=== PATIENT | female | born 1985 | race Caucasian/White ===

== ENCOUNTER 2024-06-05 16:51 | Emergency (ER) | payer MEDICARE, SELFPAY ==
[2024-06-05 16:58] VITALS: BP 153/100
--- NOTE | 2024-06-05 17:20 | ED.GENMED ---
History of Present Illness
General
Chief Complaint: Anxiety
Time Seen by Provider: 06/05/24 17:18
History of Present Illness
History of Present Illness:
HPI: Patient comes in due to concerns for anxiety. Moved in w/ father/step-mother 7M ago. Was alone last week while parents away. 2d ago, had pressured speech, restless, more talkative, reported 'anxiety' to mother. Then became noncommunicative
to therapist and PMD. She is here w/ step-mother. Was crying extensively last night, but no SI thoughts. One week ago, started gabapentin (no steroids). Also on Latuda, Lamictal, and Vistaril. Father states that she had a similar episode in the
past which was successfully treated just with Ativan. It is unclear and he will not answer me directly if she is or is not taking Ativan currently.
EXAM:
GENERAL: The patient only intermittently answers questions and speaks in very low volume
HEENT: Moist oral mucosa, there are no intraoral lesions suggestive of SJS
CARDIOVASCULAR: No murmurs, tachycardic heart rate, regular rhythm, No chest wall tenderness
PULMONARY: No respiratory distress, breath sounds are clear and equal
ABDOMEN: Soft with no peritoneal signs, no tenderness
NEUROLOGIC: Fair strength in all extremities, no definite focal deficits on examination, minimally verbal
PSYCHIATRIC: The patient appears somewhat withdrawn, she appears anxious
EXTREMITIES: Nontender, no edema, moves all extremities equally
SKIN: There is a faint erythematous rash over the anterior chest wall
TIME OF INITIAL ENCOUNTER: 5:20 PM
NUMBER AND COMPLEXITY OF PROBLEMS ADDRESSED AT THE ENCOUNTER
� Chronic conditions affecting care: Bipolar disorder
� Acute Exacerbation and/or Progression of Chronic Illness: This is an acute problem but had similar presentation in the past
� Differential Diagnosis includes: Severe anxiety, worsening bipolar disorder, manic state, drug reaction
AMOUNT AND/OR COMPLEXITY OF DATA TO BE REVIEWED AND ANALYZED
� I performed an independent evaluation of and my interpretation is:
EKG:
CT:
X-rays:
Laboratory Studies:
Other:
� Review of other/old records: The patient was seen here in the emergency department 2017 related to anxiety. In 2019 she was also seen by crisis and placed at a psychiatric facility.
� Clinical information was obtained by an independent historian: Father and stepmother at bedside
� Prescriptions/Medications Considered but not given:
� Further testing considered but not performed: No clear indication for lab work at this time
RISK OF COMPLICATIONS AND/OR MORBIDITY OR MORTALITY OF PATIENT MANAGEMENT
� Social determinants of health affecting care:
� Discussion with other providers:
� Escalation of care including admission/observation vs risk of discharge considered: The patient's symptoms seem to have worsened after she started gabapentin recently. Although she is on Lamictal, I see no clear evidence of
SJS. Will try dose of Ativan as father states that this helped her in the past when she had a similar episode. We did give a dose of Ativan orally. On reassessment at 7:40 PM, she is speaking a little bit more on reassessment. I did speak to the
father about possibly having her go to a psychiatric facility. She has had a similar episode in the past which resolved after Ativan was given' the next day she was better'. Since she has no SI and there are no concerns for harming herself I feel
she can be safely discharged. Her heart rate is elevated but slightly better compared to arrival.
Past History
Past History
ED Past Medical History: Asthma, GERD and Psychiatric (Anxiety)
ED Past Surgical History: Other ([place] teeth)
Social History
Tobacco: Non-smoker
Personal:
Living: with family
Employment: Employed
Family History
Family History: Other (Noncontributory)
Phy Exam
Physical Exam
Physical Exam:
See HPI
Course
Orders/Labs/Results
Orders:
Orders
06/05/24 18:12
Lorazepam [Ativan] 1 mg PO NOW STA
Vital Signs
Initial and Last Documented VS:
Initial Vital Signs
Temp Pulse BP Pulse Ox
97.5 F 127 153/100 98
06/05/24 16:58 06/05/24 16:58 06/05/24 16:58 06/05/24 16:58
Last Documented Vital Signs
Temp Pulse Resp BP Pulse Ox
97.5 F 122 18 146/95 100
06/05/24 16:58 06/05/24 18:00 06/05/24 18:00 06/05/24 18:00 06/05/24 18:00
*Critical Care Note
Total Time (30-74mins, 75-104mins- exclusive of procedures): Not Applicable
ED Attending Note
-
Portions of this chart may have been created with voice recognition software.� Occasional wrong word or��sound alike� substitutions may have occurred due to the inherent limitations of voice recognition software.
Discharge Plan
Departure
Prescriptions:
No Action
Unobtainable
0
Referrals:
Alfredo Estevez MD [Family Provider] -
Interventions
Interventions:
*Risk Screen - Suicide Last Done: 06/05/24 16:54
*General Assessment Last Done: 06/05/24 17:01
ED- Fall Risk Assessment Last Done: 06/05/24 17:41
*ED COVID-19 Vaccine History Last Done: 06/05/24 17:01
ED-Psychological Assessment Last Done: 06/05/24 17:41
Discharge Date and Time
Print Language: ANDORRAN
[2024-06-05 17:41] VITALS: BMI 32.6
[2024-06-05 17:48] VITALS: BP 146/95
--- NOTE | 2024-06-05 17:57 | EDRN ---
Received patient on stretcher. Patient is non verbal. Patient stares at you when asked any questions. Patient points to her chest and abdomen when asked where her rash is. Parents stated that the patient was started on Gabapentin 2 weeks ago and was
told by her doctor to stop taking it.
[2024-06-05 18:00] VITALS: BP 146/95
[2024-06-05] MEDS: ATIVAN 1 MG PO (18:37)
[2024-06-05 20:02] VITALS: BP 132/82
== END 2024-06-05 20:05 | disposition home or self-care (01) ==
LOC: EMR 16:51
PROVIDERS: EMERGENCY PHYSICIAN Emergency Medicine; FAMILY PHYSICIAN Internal Medicine
DX: F41.9 Anxiety disorder, unspecified (principal); J45.909 Unspecified asthma, uncomplicated; K21.9 Gastro-esophageal reflux disease without esophagitis
CPT/HCPCS: 99282

== ENCOUNTER 2024-06-08 04:06 | Emergency (ER) | payer MEDICARE, SELFPAY ==
[2024-06-08] VITALS (8 sets, daily range): BP systolic 128–155; BP diastolic 78–103
--- NOTE | 2024-06-08 04:38 | ED.GENMED ---
History of Present Illness
General
Chief Complaint: Change in Mental Status
Time Seen by Provider: 06/08/24 04:12
History of Present Illness
History of Present Illness:
38-year-old female who presents to the emergency department with her father. He states that for the last day she has been making repetitive sounds. Patient told him she was starting to 'dissociate'. She has a history of bipolar disorder and
anxiety. Patient had a similar episode approximate 1 year ago. She went into a psychiatric hospital and came out feeling much better. Dad states that about that time, her left her so she came to live with him and her stepmother. Dad
states that she has minimal contact with her biological mom who lives in [place]. Dad and stepmom went away several weeks ago on vacation. They did have a family friend stay with her during their absence. Patient did tell dad that during the
absence, she began to decompensate. Dad states that she had been very high functioning prior to this, even helping him build a deck. For the last 2 days, patient has been having altered mental status. Making strange sounds and not communicating.
Dad states that the most he had heard her talk in the previous 2 days was when she was talking to me. She denies any symptoms at this time, but her history is limited. Patient did admit that she wanted to go to an inpatient psychiatric facility.
Patient was seen by crisis who corroborated the story. They are looking for placement
Past History
Past History
ED Past Medical History: Asthma, GERD and Psychiatric (Anxiety)
ED Past Surgical History: Other ([place] teeth)
Social History
Tobacco: Non-smoker
Personal:
Living: with family
Employment: Employed
Family History
Family History: Other (Noncontributory)
Phy Exam
Physical Exam
Physical Exam:
Physical Exam
Vital signs and allergy list reviewed and agreed with.
GENERAL: Alert, tracking with eyes, in moderate apparent distress
EYE: pupils equal, EOMI, anicteric
NECK: Supple, no significant adenopathy. No masses. Trachea midline
ENT: Oropharynx is clear, mmm.
CARDIAC: Regular rate and rhythm . No M/R/G
LUNGS: Clear breath sounds bilaterally, no acute respiratory distress, no wheezes/rales/rhonchi
ABDOMEN: Unable to evaluate
NEUROLOGICAL: Blank stare with occasional answering of questions. When she did answer questions, her answers were appropriate.
SKIN: Warm and dry, skin intact.
MUSCULOSKELETAL: No edema, well perfused. Moves all 4 extremities
PSYCH: Flat affect with minimal interaction
Course
Orders/Labs/Results
Orders:
Orders
06/08/24 04:36
Bedside Glucose- Treatment ONCE
Urine Drug Abuse Screen Urgent
Lorazepam [Ativan] 1 mg PO NOW STA
Test Result ONCE
06/08/24 04:41
Crisis Consult Urgent
Reason for Consult: ams- hx of bipolar
06/08/24 05:46
Acetaminophen Urgent
Alcohol Urgent
Complete Blood Count/With Diff Urgent
Comprehensive Metabolic Panel Urgent
HCG, Serum Qualitative Screen Urgent
Salicylate Urgent
Abnormal Lab Results
06/08/24 06/08/24
05:46 05:48
WBC 18.3 H 10^3/uL
(4.8-10.8)
Hct 35.8 L %
(37.0-47.0)
Plt Count 636 H 10^3/uL
(130-400)
Abs Immat Gran (auto) 0.2 H 10^3/uL
(0-0.05)
Absolute Neuts (auto) 15.1 H 10^3/uL
(1.4-6.5)
Absolute Monos (auto) 1.0 H 10^3/uL
(0.1-0.6)
Immature Gran % 0.9 H %
(0-0.5)
Neutrophils % 82.4 H %
(42.2-75.2)
Lymphocytes % 10.8 L %
(20.5-51.1)
Glucose 114 H mg/dl
(70-99)
ALT 67 H U/L
(0-35)
Salicylates < 1.0 L mg/dl
(2.0-20.0)
Acetaminophen < 10 L ug/ml
(10-30)
POC Glucose 112 H mg/dl
(70-99)
06/08/24 05:46
06/08/24 05:46
Vital Signs
Initial and Last Documented VS:
Initial Vital Signs
Temp Pulse Resp BP Pulse Ox
97.6 F 125 24 141/95 99
06/08/24 04:10 06/08/24 04:10 06/08/24 04:10 06/08/24 04:10 06/08/24 04:10
Last Documented Vital Signs
Temp Pulse Resp BP Pulse Ox
97.6 F 115 30 131/91 95
06/08/24 04:10 06/08/24 06:00 06/08/24 06:00 06/08/24 06:00 06/08/24 06:00
*Critical Care Note
Total Time (30-74mins, 75-104mins- exclusive of procedures): Not Applicable
ED Attending Note
-
Portions of this chart may have been created with voice recognition software.� Occasional wrong word or��sound alike� substitutions may have occurred due to the inherent limitations of voice recognition software.
Discharge Plan
Departure
Patient Disposition: Psych Facility
Date of Disposition: 06/08/24
Time of Disposition: 07:01
Patient with high blood pressure during this ER visit?: No
Condition: Good
Discharge Problem:
Disassociation, Altered mental status
Instructions: Altered Mental Status (DC)
Prescriptions:
No Action
Unobtainable
0
Referrals:
UNKNOWN - PT DOES,NOT KNOW [Family Provider] -
Interventions
Interventions:
*Risk Screen - Suicide Last Done: 06/08/24 05:25
*General Assessment Last Done: 06/08/24 05:25
*Neglect/Abuse Screening Last Done: 06/08/24 05:25
*ED COVID-19 Vaccine History Last Done: 06/08/24 05:25
ED-Psychological Assessment Last Done: 06/08/24 05:25
ED- Neurological Assessment Last Done: 06/08/24 05:25
ED Swallowing Screen Last Done: 06/08/24 05:25
Discharge Date and Time
Print Language: SINHALA
[2024-06-08 05:50] LABS: Glucose - Point of Care 112 mg/dl (70-99)
[2024-06-08 06:13] LABS: ALT (SGPT) 67 U/L (0-35); AST (SGOT) 35 U/L (14-36); Acetaminophen < 10 ug/ml (10-30); Albumin 3.7 g/dl (3.5-5.0); Alkaline Phosphatase 98 U/L (38-126); Blood Urea Nitrogen 11 mg/dl (7-17); Calcium 9.4 mg/dl (8.4-10.2); Carbon Dioxide 22 mmol/L (22-30); Chloride 102 mmol/L (98-107); Glucose 114 mg/dl (70-99); Potassium 4.4 mmol/L (3.5-5.1); Salicylate < 1.0 mg/dl (2.0-20.0); Sodium 136 mmol/L (135-145); Total Bilirubin 0.5 mg/dl (0.2-1.3); Total Protein 6.8 g/dl (6.3-8.2); eGFR > 60.00
[2024-06-08] MEDS: ATIVAN PO (06:15)
[2024-06-08 06:17] LABS: Alcohol None Detected
[2024-06-08 06:22] LABS: HCG, Serum Qualitative Screen Negative
[2024-06-08 06:25] LABS: % Basophils 0.4 % (0-2); % Eosinophils 0.2 % (0-6); % Immature Granulocytes 0.9 % (0-0.5); % Lymphocytes 10.8 % (20.5-51.1); % Monocytes 5.3 % (1.7-9.3); % Neutrophils 82.4 % (42.2-75.2); Absolute Basophils 0.1 10^3/uL (0-0.2); Absolute Immature Granulocytes 0.2 10^3/uL (0-0.05); Absolute Neutrophils 15.1 10^3/uL (1.4-6.5); Hematocrit 35.8 % (37.0-47.0); Hemoglobin 12.1 g/dL (12.0-16.0); Mean Corp Hgb Conc. 33.8 g/dL (33.0-37.0); Mean Corpuscular Hgb 28.1 pg (27.0-31.0); Mean Corpuscular Volume 83.3 fL (81.0-99.0); Nucleated Red Blood Cells % 0 %; Platelet Count 636 10^3/uL (130-400); Red Cell Dist. Width 13.9 % (11.5-14.5); White Blood Cell Count 18.3 10^3/uL (4.8-10.8)
--- NOTE | 2024-06-08 08:31 | ED.CRISIS ---
ED Crisis Note
ED Crisis Note
Subjective:
The patient is currently a very limited historian and does not provide any meaningful history currently
Objective:
This is similar in appearance to when I saw her the other day, she does utter some words occasionally
Assessment/Plan:
Currently waiting for transfer to [facility]. The father is willing to drive her by private vehicle. I evaluated them the other day and he does seem reasonable. I spoke to crisis and crisis is calling afterwards them to see if the doing for her to
come by private vehicle.
[2024-06-08] MEDS: ATIVAN 1 MG PO (08:46)
== END 2024-06-08 10:23 ==
LOC: EMR 04:06
PROVIDERS: EMERGENCY PHYSICIAN Student in an Organized Health Care Education/Training Program
DX: R41.82 Altered mental status, unspecified (principal); F31.9 Bipolar disorder, unspecified; J45.909 Unspecified asthma, uncomplicated; K21.9 Gastro-esophageal reflux disease without esophagitis; F41.9 Anxiety disorder, unspecified
CPT/HCPCS: 99283; 80053; 80143; 80179; 82077; 82962; 84703; 85025

== ENCOUNTER 2024-12-08 01:07 | Emergency (ER) | payer MEDICARE, SELFPAY ==
[2024-12-08 01:21] VITALS: BP 161/97
--- NOTE | 2024-12-08 02:42 | ED.GENMED ---
History of Present Illness
General
Chief Complaint: Anxiety
Source: patient
Time Seen by Provider: 12/08/24 02:32
History of Present Illness
History of Present Illness:
39-year-old female presents emergency department with self-described feeling manic. She has a strong support system including speaking to her therapist today as well as her mother and father who she describes as being very supportive. She denies
SI or HI, and states that she needs a dose of Ativan to just feel better. She denies any physical symptoms.
Past History
Past History
ED Past Medical History: Asthma, GERD and Psychiatric (Anxiety)
ED Past Surgical History: Other ([place] teeth)
Social History
Tobacco: Non-smoker
Personal:
Living: with family
Employment: Employed
Family History
Family History: Other (Noncontributory)
Phy Exam
Physical Exam
Physical Exam:
GENERAL: Alert , in no apparent distress
EYE: pupils equal and reactive
NECK: Supple, no significant adenopathy.
ENT: o/p clr, mmm.
CARDIAC: Regular rate and rhythm .
LUNGS: Clear breath sounds bilaterally, no acute respiratory distress, no wheezes/rales/rhonchi
ABDOMEN: Soft, without focal tenderness, no r/g, no cvat
NEUROLOGICAL: Alert and oriented, no focal neuro deficits
SKIN: Warm and dry, skin intact.
MUSCULOSKELETAL: No edema, well perfused.
PSYCH: Patient speaks extensively, sometimes rambling, sometimes tearful.
Course
Orders/Labs/Results
Orders:
Orders
12/08/24 01:43
Crisis Consult Urgent
Reason for Consult: anxiety, feels manic, coping mechanisms not working
12/08/24 02:41
Lorazepam [Ativan] 1 mg PO NOW STA
12/08/24 04:02
Olanzapine [Zyprexa] 10 mg PO NOW STA
12/08/24 04:13
Olanzapine [Zyprexa] 10 mg .ROUTE .STK-MED ONE
12/08/24 04:14
Olanzapine [Zyprexa] 10 mg PO NOW STA
Vital Signs
Initial and Last Documented VS:
Initial Vital Signs
Temp Pulse Resp BP Pulse Ox
100.0 F 153 26 161/97 96
12/08/24 01:21 12/08/24 01:21 12/08/24 01:21 12/08/24 01:21 12/08/24 01:21
Last Documented Vital Signs
Temp Pulse Resp BP Pulse Ox
100 F 113 20 132/101 99
12/08/24 01:21 12/08/24 04:19 12/08/24 04:19 12/08/24 04:19 12/08/24 04:19
*Critical Care Note
Total Time (30-74mins, 75-104mins- exclusive of procedures): Not Applicable
Update Note
Update Note:
Patient presents to the Emergency Department with feeling manic
Number and Complexity of Problems Addressed at the Encounter
� Chronic conditions affecting care:
� Acute Exacerbation and/or Progression of Chronic Illness:
� Differential Diagnosis includes: But not limited to exacerbation of bipolar disorder, anxiety, etc. etc.
Amount and/or Complexity of Data to be Reviewed and Analyzed
� I performed an independent evaluation of and my interpretation is:
EKG:
CT:
Xrays:
Laboratory Studies:
Other:
� Review of other/old records reveals:
� Clinical information was obtained by an independent historian:
� Prescriptions/Medications Considered but not given:
� Further testing considered but not performed:
Risk of Complications and/or Morbidity or Mortality of Patient Management
� Social determinants of health affecting care:
� Discussion with other providers (PCP, Hospitalists, Consultants, etc):
� Escalation of care including admission/observation vs risk of discharge considered: Patient noted to have low-grade fever here associated with mild tachycardia. Exam and history do not suggest a serious illness such as
meningitis, encephalitis, pneumonia, etc. She is awake alert without nuchal rigidity, headache, confusion, etc. Pulse ox normal lung CTA, etc. I suspect her documented tachycardia is not at least in part related to her crying/being upset.
Long discussion with patient, father, and stepmother who are all bedside now. She does not meet criteria for 302 admission. Patient does not want to voluntarily go for inpatient care. They will collectively recognize that she is developing some
anita, and would like to try to manage at home. I cannot guarantee that she will get worse at home, however if she does develop increasing or new symptoms she consents/promises to communicate with her father/stepmother and return to the emergency
department. Patient does not present as a danger to herself or others at this time.
ED Attending Note
-
Portions of this chart may have been created with voice recognition software.� Occasional wrong word or��sound alike� substitutions may have occurred due to the inherent limitations of voice recognition software.
Discharge Plan
Departure
Patient Disposition: Home (Routine Discharge)
Date of Disposition: 12/08/24
Time of Disposition: 04:01
Patient with high blood pressure during this ER visit?: Yes
Condition: Good
Discharge Problem:
Anxiety
Instructions: Anxiety, Adult (DC), BLOOD PRESSURE
Prescriptions:
No Action
Unobtainable
0
Referrals:
UNKNOWN,NO INTERVIEW [Family Provider] -
Activity Restrictions/Additional Instructions:
IF YOU DEVELOP THOUGHTS OF WANTING TO HURT YOURSELF OR OTHERS, FEVER, VOMITING, CHEST PAIN, SHORTNESS OF BREATH, GET WORSE, DO NOT GET BETTER, OR OTHER WORRISOME SIGNS, PLEASE RETURN TO THE ER IMMEDIATELY.
Interventions
Interventions:
*Risk Screen - Suicide Last Done: 12/08/24 01:21
*Neglect/Abuse Screening Last Done: 12/08/24 04:19
*ED- Fall Risk Assessment Last Done: 12/08/24 01:21
*ED COVID-19 Vaccine History Last Done: 12/08/24 01:21
*Nursing Disposition Last Done: 12/08/24 04:19
ED-Psychological Assessment Last Done: 12/08/24 02:07
Discharge Date and Time
Discharge Date/Time: 12/08/24 04:20
Print Language: WALLISIAN
[2024-12-08] MEDS: ATIVAN 1 MG PO (02:51)
[2024-12-08] MEDS: ZYPREXA 10 MG PO ×2 (04:07→04:15)
[2024-12-08 04:19] VITALS: BP 132/101
== END 2024-12-08 04:20 | disposition home or self-care (01) ==
LOC: EMR 01:07
PROVIDERS: EMERGENCY PHYSICIAN Emergency Medicine
DX: F41.9 Anxiety disorder, unspecified (principal); J45.909 Unspecified asthma, uncomplicated; K21.9 Gastro-esophageal reflux disease without esophagitis
CPT/HCPCS: 99283

== ENCOUNTER 2025-01-18 15:34 | Emergency (ER) | payer MEDICARE, SELFPAY ==
[2025-01-18 15:45] VITALS: BP 168/109
[2025-01-18 16:20] VITALS: BP 143/93
--- NOTE | 2025-01-18 16:37 | ED.GENMED ---
History of Present Illness
General
Chief Complaint: Medication Reaction
Source: patient and family
Time Seen by Provider: 01/18/25 15:52
History of Present Illness
History of Present Illness:
39-year-old female with past medical history of schizoaffective disorder, bipolar disorder, asthma presenting to the ER with father for evaluation of increased eladia and panic attacks over recent medications. Patient recently completed a stay at
[facility] where she had medications adjusted, was discharged home with medications but ran out of her Cogentin and states that this is what usually has helped her in the past. Patient denies any suicidal or homicidal ideations, auditory or
visual hallucinations. Her only physical complaint is 'feeling manic'
Past History
Past History
ED Past Medical History: Asthma, GERD and Psychiatric (Anxiety)
ED Past Surgical History: Other ([place] teeth)
Social History
Tobacco: Non-smoker
Alcohol: None
Drug: None
Personal:
Living: with family
Employment: Employed
Family History
Family History: Other (Noncontributory)
Review of Systems
Review of Systems
All Other Systems: ROS reviewed and negative except as documented in HPI and ROS
Phy Exam
Physical Exam
Physical Exam:
GENERAL: Alert , shaky, rapid speech, somewhat tangential but overall goal-directed
EYE: conjunctiva clear
Head: Normocephalic atraumatic
NECK: Supple,
ENT: mmm.
LUNGS: no acute respiratory distress
NEUROLOGICAL: Alert and oriented
SKIN: Warm and dry, skin intact.
MUSCULOSKELETAL: well perfused.
PSYCH: Normal and appropriate interaction.
Scores
Heart Failure Risk
Heart Failure Risk Score: Not Applicable
Heart Score for Chest Pain Patients
STEMI patient?: Not applicable
Withdrawal Assessment of Alcohol
Withdrawal Assessment Completed?: Not applicable
Course
Orders/Labs/Results
Orders:
Orders
01/18/25 15:48
Crisis Consult Urgent
Reason for Consult: medication issues and needs to return to [place] for stabilzation
01/18/25 16:04
Benztropine [Cogentin] 1 mg PO NOW STA
01/18/25 16:59
Lorazepam [Ativan] 1 mg PO NOW STA
01/18/25 17:13
Olanzapine [Zyprexa] 10 mg IM NOW STA
01/18/25 17:16
Sterile Water [Sterile Water For Injection] 10 ml .ROUTE .STK-MED ONE
Sterile Water [Sterile Water For Injection] 20 ml .ROUTE .STK-MED
Vital Signs
Initial and Last Documented VS:
Initial Vital Signs
Temp Pulse Resp BP Pulse Ox
98.1 F 139 24 168/109 97
01/18/25 15:45 01/18/25 15:45 01/18/25 15:45 01/18/25 15:45 01/18/25 15:45
Last Documented Vital Signs
Temp Pulse Resp BP Pulse Ox
98.1 F 128 24 143/93 97
01/18/25 15:45 01/18/25 16:20 01/18/25 15:45 01/18/25 16:20 01/18/25 15:45
MDM/Problems Addressed
Differential Diagnosis Includes:
Breakthrough eladia, medication interaction, no concern for infectious process or substance use disorder
MDM/Problems Addressed:
39-year-old female presenting to the emergency department for evaluation and treatment of eladia. Patient hoping to go back to [facility]. Patient is clearly manic, difficult to redirect. Will give dose of Cogentin here. Crisis consult
placed. Disposition pending.
Chronic conditions affecting care: Psychiatric illness
Acute Exacerbation and/or Progression of Chronic Illness: Psychiatric illness
*Pulse Oximetry
Patient hypoxic: no
*Critical Care Note
Total Time (30-74mins, 75-104mins- exclusive of procedures): Not Applicable
Comment
Comment:
While awaiting crisis consultation patient began to have increased anxiety/panic attack, yelling, not redirectable, not answering questions. 1 mg p.o. Ativan ordered. Reassessment following. If minimal improvement over the next 20 to 30 minutes
will consider giving dose of IM Zyprexa
Patient Management
Escalation/DeEscalation of care consider admission/obs:
Patient accepted at [facility]. general superintendent at 2044. Patient remains stable following dose of geodon.
ED Attending Note
-
Portions of this chart may have been created with voice recognition software.� Occasional wrong word or��sound alike� substitutions may have occurred due to the inherent limitations of voice recognition software.
Discharge Plan
Departure
Patient Disposition: Home (Routine Discharge)
Date of Disposition: 01/18/25
Time of Disposition: 20:00
Patient with high blood pressure during this ER visit?: Yes
Discharge Problem:
Eladia
Prescriptions:
No Action
Unobtainable
0
Referrals:
UNKNOWN - PT DOES,NOT KNOW [Family Provider] -
Interventions
Interventions:
*Risk Screen - Suicide Last Done: 01/18/25 15:41
*Neglect/Abuse Screening Last Done: 01/18/25 15:41
*ED- Fall Risk Assessment Last Done: 01/18/25 16:05
ED-Skin Assessment Last Done: 01/18/25 16:04
ED- Pulmonary Assessment Last Done: 01/18/25 16:05
ED-EENT Assessment Last Done: 01/18/25 16:04
Discharge Date and Time
Print Language: LITHUANIAN
[2025-01-18] MEDS: COGENTIN 1 MG PO (16:41)
[2025-01-18 16:43] VITALS: BMI 62.4
[2025-01-18] MEDS: ATIVAN 1 MG PO (17:03)
[2025-01-18] MEDS: ZYPREXA 10 MG IM (17:31)
== END 2025-01-18 22:25 | disposition home or self-care (01) ==
LOC: EMR 15:34
PROVIDERS: EMERGENCY PHYSICIAN Emergency Medicine
DX: F30.9 Manic episode, unspecified (principal); F25.9 Schizoaffective disorder, unspecified; F41.9 Anxiety disorder, unspecified; J45.909 Unspecified asthma, uncomplicated
CPT/HCPCS: 99283; 96372; J2358